=== PATIENT | male | born 1960 | race Caucasian/White ===

== ENCOUNTER 2016-12-13 19:59 | Emergency (ER) | payer MEDICARE, OTHER ==
[~2016-12-13] VITALS: Ht 162.6 cm; Wt 86.0 kg
[~2016-12-13 19:59] MED LIST: ASPIRIN; SERT50TA6 PO; klonopin
[2016-12-13 20:10] VITALS: Ht 162.6 cm; Wt 86.0 kg
[2016-12-13] MEDS ORDERED: LIDOCAINE 2% (MDV) 20 ML INJ INJ ONE (22:00)
[2016-12-13] MEDS ORDERED: DIPHTH/TET/ACEL PERTUSS (ADULT) 0.5 ML VIAL IM* ONE (23:00)
[2016-12-13 23:40] VITALS: BP 115/87; PULSE 72; RESP 18; TEMP 98.6
--- NOTE | 2016-12-14 00:30 | ERD ---
ER Documentation Chief Complaint Date/Time DATE: 12/14/16 TIME: 00:27 Chief Complaint chin laceration HPI 56-year-old male patient with a past medical history of depression presents the ED complaining of a chin laceration that occurred earlier today. 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 States that he is up-to-date with his vaccinations. Denies any posterior head pain. Denies any fever, chills, headache, nausea, vomiting, weakness, numbness and tingling. ROS All systems reviewed and are negative except as per history of present illness. Medications Home Meds Reported Medications [Aspirin] No Conflict Check 05/25/16 [klonopin] No Conflict Check 05/25/16 Sertraline Hcl* (Sertraline Hcl*) 50 Mg Tablet, 50 MG PO DAILY, #30 TAB 09/18/15 Allergies Allergies: Coded Allergies: Shellfish (Verified Allergy, Unknown, 07/23/15) acetaminophen (Verified Allergy, Unknown, 10/10/15) atropine (Verified Allergy, Unknown, 10/10/15) ciprofloxacin (Verified Allergy, Unknown, 10/10/15) codeine (Verified Allergy, Unknown, 07/23/15) docusate (Verified Allergy, Unknown, 10/10/15) hydrocodone (Verified Allergy, Unknown, 10/10/15) morphine (Verified Allergy, Unknown, 10/10/15) ranitidine (Verified Allergy, Unknown, 10/10/15) rofecoxib (Verified Allergy, Unknown, 07/23/15) PMhx/Soc History of Surgery: Yes (CHOLECYSTECTOMY) Anesthesia Reaction: No Hx Neurological Disorder: Yes (FIBROMYALGIA) Hx Respiratory Disorders: No Hx Cardiac Disorders: Yes Hx Psychiatric Problems: Yes (ANXIETY/DEPRESSION) Hx Miscellaneous Medical Probl: No Hx Alcohol Use: No Hx Substance Use: No Hx Tobacco Use: No Smoking Status: Never smoker Physical Exam Vitals Vital Signs Date Time Temp Pulse Resp B/P Pulse Ox O2 Delivery O2 Flow Rate FiO2 12/13/16 23:40 98.6 72 18 115/87 96 Room Air 12/13/16 20:10 98.3 80 20 170/78 99 Physical Exam Const: Anu-rxb-jrblyaznr, well-nourished. In no acute distress. Head: Atraumatic, normocephalic Eyes: Normal Conjunctiva without injection. No purulent discharge. PERRLA. EOMI ENT: Normal external ear. Ear canal without erythema. Tympanic membrane pearly hinojosa without effusion or bulging. Nasal canal clear with normal turbinates. Moist oropharynx without tonsillar exudates. Non-erythematous pharynx. Uvula midline. No drooling. No trismus. Neck: No cervical midline tenderness. Full range of motion. No meningismus. No cervical lymphadenopathy. No JVD. Resp: Clear to auscultation bilaterally. No wheezing, rhonchi, rales, or crackles. No accessory muscle use. No retractions. Cardio: Regular rate and rhythm. No murmurs, rubs or gallops. Abd: Soft, non tender, non distended. Normal bowel sounds. No palpable masses. No rebound tenderness. No guarding. Negative McBurney's Point. Negative Loyd's Sign. Skin: Normal skin turgor. No petechiae or rashes. 1.5 cm linear horizontal laceration noted on the left side of patient's chin with no surrounding erythema , edema, purulent discharge. No fluctuance or induration. Back: No midline tenderness. No CVA tenderness. Ext: No cyanosis, or edema. Distal pulses intact bilaterally. Neur: Awake and alert. Normal gait. Normal coordination. Cranial Nerves II- VII intact. Normal finger to nose. Muscle strength 5/5. Sensation intact. Psych: Normal Mood and Affect Results 24 hrs Current Medications Medications (Trade) Dose Ordered Sig/Stephanie Route PRN Reason Start Time Stop Time Status Last Admin Dose Admin Lidocaine (Xylocaine 2% (Mdv) 20 ml) 20 ml ONCE ONCE INJ 12/13/16 22:00 12/13/16 22:01 DC Diphtheria/ Tetanus/Acell Pertussis (Adacel) 0.5 ml ONCE ONCE IM* 12/13/16 23:00 12/13/16 23:01 DC 12/13/16 22:58 Procedures/MDM This is a 56-year-old male patient with a past medical history of depression presents to the ED complaining of a chin laceration that occurred earlier today. Patient is afebrile and nontoxic-appearing. Patient has normal vital signs. Patient gave consent to perform laceration repair. Laceration Repair by me: Anesthesia: 5 cc 2% lidocaine locally Location: [Chin] Tendon/Joint/Nerves: No injury Foreign body: None detected after copious irrigation and exploration Technique: 3 6-0 Ethilon Simple Interrupted Sutures Complexity: No subcutaneous sutures/mucosal repair/ edge excision Post Closure Length: [1.5] cm Patient's bleeding was easily controlled in the department and there is no indication of anemia. Patient is neurovascularly intact. No evidence of compartment syndrome, neurologic injury, vascular injury, open joint, tendon laceration, or foreign body. Patient is appropriate for outpatient follow up. 48 hour wound check. Scar minimization instructions given. Instructed patient to return for suture removal in 5-7 days. Instructed patient to return to the ED sooner for any worsening symptoms. Follow up with primary care physician in 1-2 days. Patient's questions were answered. Patient understood and agreed with discharge plan. Departure Diagnosis: Primary Impression: Chin laceration Encounter type: initial encounter Qualified Code: S01.81XA - Chin laceration , initial encounter Condition: Stable Patient Instructions: Laceration, Chin, Suture Or Tape Referrals: [facility] YOU HAVE RECEIVED A MEDICAL SCREENING EXAM AND THE RESULTS INDICATE THAT YOU DO NOT HAVE A CONDITION THAT REQUIRES URGENT TREATMENT IN THE EMERGENCY DEPARTMENT. FURTHER EVALUATION AND TREATMENT OF YOUR CONDITION CAN WAIT UNTIL YOU ARE SEEN IN YOUR DOCTORS OFFICE WITHIN THE NEXT 1-2 DAYS. IT IS YOUR RESPONSIBILITY TO MAKE AN APPOINTMENT FOR FOL-UP CARE. IF YOU HAVE A PRIMARY DOCTOR --you should call your primary doctor and schedule an appointment IF YOU DO NOT HAVE A PRIMARY DOCTOR YOU CAN CALL OUR PHYSICIAN REFERRAL HOTLINE AT IF YOU CAN NOT AFFORD TO SEE A PHYSICIAN YOU CAN CHOSE FROM THE FOLLOWING [facility] CLINICS [facility] [address] [facility]. [facility] [address] [facility]. [facility] [address] [facility]. [facility] [address] [facility] [address] [facility]. [facility]. [address] [facility]. [facility] YOU HAVE RECEIVED A MEDICAL SCREENING EXAM AND THE RESULTS INDICATE THAT YOU DO NOT HAVE A CONDITION THAT REQUIRES URGENT TREATMENT IN THE EMERGENCY DEPARTMENT. FURTHER EVALUATION AND TREATMENT OF YOUR CONDITION CAN WAIT UNTIL YOU ARE SEEN IN YOUR DOCTORS OFFICE WITHIN THE NEXT 1-2 DAYS. IT IS YOUR RESPONSIBILITY TO MAKE AN APPOINTMENT FOR FOLOW-UP CARE. IF YOU HAVE A PRIMARY DOCTOR --you should call your primary doctor and schedule and appointment IF YOU DO NOT HAVE A PRIMARY DOCTOR YOU CAN CALL OUR PHYSICIAN REFERRAL HOTLINE AT . IF YOU CAN NOT AFFORD TO SEE A PHYSICIAN YOU CAN CHOSE FROM THE FOLLOWING [facility] INSTITUTIONS: [facility] [address] [place] [address] [facility] [address] [place] [address] [facility] [address] [place] [address] [facility]ENT [facility]SPECIALTIES Additional Instructions: Follow up in 2 days in your clinic for wound check. Follow up with your physician to remove the stitches:For Face wounds 5-7 days.For Elsewhere on the body 7-10 days. Return to this facility if you are not improving as expected. CHELO WITT PA-C December 14, 2016 00:30 CHELO WITT PA-C December 14, 2016 00:30
== END 2016-12-13 23:41 | disposition home or self-care (01) ==
LOC: FTE 19:59
DX: S01.81XA Laceration without foreign body of other part of head, initial encounter (principal); W22.8XXA Striking against or struck by other objects, initial encounter; Y92.9 Unspecified place or not applicable; Z23 Encounter for immunization
CPT/HCPCS: 90471; 90715

== ENCOUNTER 2017-08-22 12:16 | Emergency (ER) | END 2017-08-22 18:19 | disposition home or self-care (01) ==

== ENCOUNTER 2018-04-04 06:49 | Observation (INO) | END 2018-04-05 15:47 | disposition home or self-care (01) ==

== ENCOUNTER 2018-07-01 18:58 | Emergency (ER) | END 2018-07-01 21:14 | disposition home or self-care (01) ==

== ENCOUNTER 2018-10-10 19:36 | Emergency (ER) | payer MEDICARE, OTHER ==
[~2018-10-10] VITALS: Ht 167.6 cm; Wt 74.0 kg
[~2018-10-10 19:36] MED LIST changes: +ASPI-535 PO; -ASPIRIN; +CALC-143 PO; +NIAC500C8 PO; +OMEG1CAP90 PO; +ONDA4TAB14 PO; -SERT50TA6 PO; +VITA400C15 PO; +ZINC220C5 PO; -klonopin
[2018-10-10 20:07] VITALS: Ht 167.6 cm; Wt 74.0 kg
[2018-10-11] MEDS ORDERED: MECL12.574 PO (03:05)
[2018-10-11 04:19] VITALS: BP 146/72; PULSE 60; RESP 18
--- NOTE | 2018-10-12 12:47 | ERD ---
ER Documentation Chief Complaint Chief Complaint DIZZINESS WITH OVERALL WEAKNESS X TODAY HPI 57-year-old male presents with history of some dizziness today. In addition he states he felt a little bit weak as well. He says that last Monday he got this shingles shot and a day after he spiked a mild fever and had some itchiness. St ates that he currently has no fever, dizziness, or itchiness or weakness. Not taking any treatments. Denies any wheezing, shortness of breath. Denies any chest pain, hemoptysis, history of travel or immobility, dyspnea. Denies any headaches, nausea, vomiting, fevers. Denies any current weakness or numbness or tingling. states that he has a history of fibromyalgia. ROS All systems reviewed and are negative except as per history of present illness. Medications Home Meds Active Scripts Meclizine Hcl* (Antivert*) 12.5 Mg Tab, 12.5 MG PO Q6H PRN for DIZZINESS, #20 TAB Prov:COLT SHEFFIELD 10/11/18 Ondansetron (Ondansetron Odt) 4 Mg Tab.rapdis, 4 MG PO Q6H PRN for NAUSEA AND/OR VOMITING, #10 TAB Prov:DANY PACHECO MD 07/01/18 Reported Medications Hawthorne-3 Fatty Acids/Fish Oil ([place]orne 3 1,000 mg Softgel) 1 Each Capsule, 1 EACH PO, CAP 04/04/18 Vitamin E* (Vitamin E*) 400 Unit Capsule, 400 UNIT PO DAILY, CAP 04/04/18 Zinc Sulfate* (Zinc Sulfate*) 220 Mg Cap, 220 MG PO DAILY, CAP 04/04/18 Calcium Citrate/Vitamin D (Citracal-Vitamin D 200 MG-250) 1 Each Tablet, 1 EACH PO BID, TAB 04/04/18 Niacin (Inositol Niacinate) (Niacin 500 mg Capsule) 500 Mg Capsule, 500 MG PO DAILY, CAP 04/04/18 Aspirin Ec (Aspir 81) 81 Mg Tablet.dr, 81 MG PO DAILY, #30 TAB 04/04/18 Allergies Allergies: Coded Allergies: Shellfish (Unverified Allergy, Unknown, 04/04/18) acetaminophen (Unverified Allergy, Unknown, 04/04/18) atropine (Unverified Allergy, Unknown, 04/04/18) ciprofloxacin (Unverified Allergy, Unknown, 04/04/18) codeine (Unverified Allergy, Unknown, 04/04/18) docusate (Unverified Allergy, Unknown, 04/04/18) hydrocodone (Unverified Allergy, Unknown, 04/04/18) morphine (Unverified Allergy, Unknown, 04/04/18) ranitidine (Unverified Allergy, Unknown, 04/04/18) rofecoxib (Unverified Allergy, Unknown, 04/04/18) PMhx/Soc Medical and Surgical Hx: pt denies Surgical Hx History of Surgery: No Anesthesia Reaction: No Hx Neurological Disorder: No Hx Respiratory Disorders: Yes (COPD) Hx Cardiac Disorders: No Hx Psychiatric Problems: No Hx Miscellaneous Medical Probl: No Hx Alcohol Use: No Hx Substance Use: No Hx Tobacco Use: No Smoking Status: Never smoker FmHx Family History: No diabetes, No coronary disease, No other Physical Exam Vitals Vital Signs Date Temp Pulse Resp B/P (MAP) Pulse Ox O2 O2 Flow FiO2 Time Delivery Rate 10/11/18 98.3 60 18 146/72 97 Room Air 04:19 (96) 10/10/18 98.7 79 18 143/70 98 20:07 (94) Physical Exam Const: No acute distress Head: Atraumatic Eyes: Normal Conjunctiva PERRLA.. No vertical nystagmus. ENT: Normal External Ears, Nose and Mouth. TMs are pearly hinojosa and nonbulging with no hematotympanum. Airway is patent with no angioedema Neck: Full range of motion. No meningismus. Resp: Clear to auscultation bilaterally Cardio: Regular rate and rhythm, no murmurs Abd: Soft, non tender, non distended. Normal bowel sounds Skin: No petechiae or rashes Back: No midline or flank tenderness Ext: No cyanosis, or edema Neur: Awake and alert. excellence manager 1 through 12 intact. Psych: Normal Mood and Affect neuro: M/S: Alert and oriented Face: EOMI, face and pharynx with normal sensation and function Motor: Normal strength throughout Sensation: Normal sensation throughout Speech: Normal Cerebel: Normal coordination Normal gait Normal finger to nose DTR: 2+ and symmetric upper/lower extremities Result Diagram: 10/11/1810810/11/18108 Results 24 hrs Laboratory Tests Test 10/11/18 01:09 White Blood Count 5.6 10^3/ul Red Blood Count 4.78 10^6/ul Hemoglobin 14.9 g/dl Hematocrit 43.4 % Mean Corpuscular Volume 90.8 fl Mean Corpuscular Hemoglobin 31.2 pg Mean Corpuscular Hemoglobin Concent 34.3 g/dl Red Cell Distribution Width 12.3 % Platelet Count 211 10^3/UL Mean Platelet Volume 10.3 fl Immature Granulocytes % 0.200 % Neutrophils % 44.7 % Lymphocytes % 39.9 % Monocytes % 11.2 % Eosinophils % 3.6 % Basophils % 0.4 % Nucleated Red Blood Cells % 0.0 /100WBC Immature Granulocytes # 0.010 10^3/ul Neutrophils # 2.5 10^3/ul Lymphocytes # 2.2 10^3/ul Monocytes # 0.6 10^3/ul Eosinophils # 0.2 10^3/ul Basophils # 0.0 10^3/ul Nucleated Red Blood Cells # 0.0 10^3/ul Sodium Level 139 mmol/L Potassium Level 4.0 mmol/L Chloride Level 100 mmol/L Carbon Dioxide Level 29 mmol/L Anion Gap 10 Blood Urea Nitrogen 13 mg/dl Creatinine 1.21 mg/dl Est Glomerular Filtrat Rate mL/min > 60 mL/min Glucose Level 104 mg/dl Calcium Level 9.7 mg/dl Magnesium Level 2.3 mg/dl Total Bilirubin 1.2 mg/dl Direct Bilirubin 0.00 mg/dl Indirect Bilirubin 1.2 mg/dl Aspartate Amino Transf (AST/SGOT) 31 IU/L Alanine Aminotransferase (ALT/SGPT) 19 IU/L Alkaline Phosphatase 106 IU/L Total Protein 8.0 g/dl Albumin 4.5 g/dl Globulin 3.50 g/dl Albumin/Globulin Ratio 1.28 Thyroid Stimulating Hormone (TSH) 3.680 MIU/L [facility] EKG: Rate/Rhythm: Sinus rhythm with frequent PVCs QRS, ST, T-waves: No changes consistent w/ acute ischemia Impression: No evidence of ischemia or arrhythmia 57-year-old male presents with history of some dizziness today. In addition he states he felt a little bit weak as well. He says that last Monday he got this shingles shot and a day after he spiked a mild fever and had some itchiness. States that he currently has no fever, dizziness, or itchiness or weakness. Not taking any treatments. Denies any wheezing, shortness of breath. Denies any chest pain, hemoptysis, history of travel or immobility, dyspnea. CBC, CMP, and TSH were performed. All within normal limits. In addition, patient's neuro exam was within normal limits. ER Course: CBC, CMP, Troponin, EKG, orthostatic vitals administered. All WNL. EKG was performed to rule out arrhythmia s and it did show that there were some PVCs. I discussed the case with Dr. Mcgee my supervising physician and he said that as long as the magnesium was normal patient could be safely discharged. Magnesium was ordered and it was within normal limits. I have low suspicion for CVA, intercranial mass, elevated intercranial pressure, due to patient history and normal neuro exam and normal hints exam. I have low suspicion for meningitis, cardiac pathology, hemorr jw, dehydration, hypovolemia, hypoglycemia, or electrolyte imbalance based on labs, exam, and patient history. I have low suspicion for orthostatic hypotension based on normal orthostatic vitals. No evidence of meningitis. Patient's neurologic symptoms have been evaluated in the department and have stabilized. At discharge, patient given Rx for meclizine in case symptoms return. Regarding patient's PVCs, patient was advised to follow-up with his primary care for possible cardiology follow-up and monitoring. Patient is appropriate for outpatient management. Patient discharged with strict ER precautions. Patient advised to follow up with PMD. All questions answered at discharge. Departure Diagnosis: Primary Impression: Dizziness Additional Impression: Premature complex, ventricular Condition: Stable Patient Instructions: Premature Ventricular Contractions, Possible Causes of Dizziness or Fainting, Dizziness (Vertigo) and Balance Problems: Ensuring Your Safety, Dizziness, Unk Cause Referrals: MIR SQUIRES MD (PCP) ANGELA MCCONNELL,CARTER KOEHLER MD Additional Instructions: Follow up with forester aide regarding premature ventricular complexes on ekg. FOLLOW UP WITH YOUR PRIMARY CARE PHYSICIAN TOMORROW.Return to this facility if you are not improving as expected. COLT SHEFFIELD Oct 12, 2018 12:47
== END 2018-10-11 04:20 | disposition home or self-care (01) ==
LOC: FTE 19:36
DX: I49.3 Ventricular premature depolarization (principal); J44.9 Chronic obstructive pulmonary disease, unspecified; Z79.82 Long term (current) use of aspirin
CPT/HCPCS: 36415; 80053; 83735; 84443; 85025

== ENCOUNTER 2018-12-25 02:04 | Emergency (ER) | payer MEDICARE ==
[~2018-12-25] VITALS: Ht 167.6 cm; Wt 86.6 kg
[~2018-12-25 02:04] MED LIST changes: +MECL12.574 PO
[2018-12-25 02:12] VITALS: Ht 167.6 cm; Wt 86.6 kg
--- NOTE | 2018-12-25 04:43 | ERD ---
ER Documentation Chief Complaint Chief Complaint mistakenly brushed teeth with hydrocortisone1%cream 1 hour ago, no ingestio HPI 58-year-old male, previously healthy, presents to the emergency department for a physical examination after accidentally brushing his teeth with hydrocortisone cream 1%; approximately 1 hour prior to arrival. The patient denies ingestion, no lip swelling, no sore throat. ROS All systems reviewed and are negative except as per history of present illness. Medications Home Meds Active Scripts Meclizine Hcl* (Antivert*) 12.5 Mg Tab, 12.5 MG PO Q6H PRN for DIZZINESS, #20 TAB Prov:COLT SHEFFIELD 10/11/18 Ondansetron (Ondansetron Odt) 4 Mg Tab.rapdis, 4 MG PO Q6H PRN for NAUSEA AND/OR VOMITING, #10 TAB Prov:DANY PACHECO MD 07/01/18 Reported Medications Knox-3 Fatty Acids/Fish Oil (Knox 3 1,000 mg Softgel) 1 Each Capsule, 1 EACH PO, CAP 04/04/18 Vitamin E* (Vitamin E*) 400 Unit Capsule, 400 UNIT PO DAILY, CAP 04/04/18 Zinc Sulfate* (Zinc Sulfate*) 220 Mg Cap, 220 MG PO DAILY, CAP 04/04/18 Calcium Citrate/Vitamin D (Citracal-Vitamin D 200 MG-250) 1 Each Tablet, 1 EACH PO BID, TAB 04/04/18 Niacin (Inositol Niacinate) (Niacin 500 mg Capsule) 500 Mg Capsule, 500 MG PO DAILY, CAP 04/04/18 Aspirin Ec (Aspir 81) 81 Mg Tablet.dr, 81 MG PO DAILY, #30 TAB 04/04/18 Allergies Allergies: Coded Allergies: Shellfish (Unverified Allergy, Unknown, 04/04/18) acetaminophen (Unverified Allergy, Unknown, 04/04/18) atropine (Unverified Allergy, Unknown, 04/04/18) ciprofloxacin (Unverified Allergy, Unknown, 04/04/18) codeine (Unverified Allergy, Unknown, 04/04/18) docusate (Unverified Allergy, Unknown, 04/04/18) hydrocodone (Unverified Allergy, Unknown, 04/04/18) morphine (Unverified Allergy, Unknown, 04/04/18) ranitidine (Unverified Allergy, Unknown, 04/04/18) rofecoxib (Unverified Allergy, Unknown, 04/04/18) PMhx/Soc History of Surgery: No Anesthesia Reaction: No Hx Neurological Disorder: No Hx Respiratory Disorders: Yes (COPD) Hx Cardiac Disorders: No Hx Psychiatric Problems: No Hx Miscellaneous Medical Probl: No Hx Alcohol Use: No Hx Substance Use: No Hx Tobacco Use: No Smoking Status: Never smoker FmHx Family History: No diabetes, No coronary disease Physical Exam Vitals Vital Signs Date Temp Pulse Resp B/P (MAP) Pulse Ox O2 O2 Flow FiO2 Time Delivery Rate 12/25/18 98.1 69 18 170/77 96 02:12 (108) Physical Exam Patient alert, oriented, vital signs stable. HEAD: Normocephalic, atraumatic. EYES: PERRLA, EOMI, Sclera and conjunctiva appear normal. NOSE: Clear and patent nostrils. EARS: Canals clear, tympanic membranes WNL. MOUTH: normal lips and tongue, no oral lesions. THROAT: Normal oropharynx, no tonsillar exudates. NECK: Supple, No lymphadenopathy. Full ROM without pain or tenderness. HEART: RRR, no rubs, murmurs, clicks or gallops. LUNGS: Clear to auscultation. ABDOMEN: Soft, non-tender without masses or hepatosplenomegaly. EXTREMITIES: No edema bilaterally. BACK: Full ROM, no deformity, normal back exam NEURO: Cranial nerves grossly intact, no motor or sensory deficit SKIN: No rashes, no petechia. Procedures/MDM Vital signs stable, physical examination unremarkable. Low suspicion for accidental overdose, allergic reaction or upper airway obstruction. During the ED course the patient remained stable, no new complaints. Results and clinical impression discussed with the patient who agrees with management. The patient is stable to be treated outpatient and will be discharged home with recommendations to Follow up with the primary care provider in the next 48h. If symptoms persist, worsen or new symptoms develop, then patient should return to the ED immediately. Instructions explained and given directly by me to the patient with acknowledgment and demonstrated understanding. Disclaimer: Inadvertent spelling and grammatical errors are likely due to EHR/dictation software use and do not reflect on the overall quality of patient care. Also, please note that the electronic time recorded on this note does not necessarily reflect the actual time of the patient encounter. Departure Diagnosis: Primary Impression: Normal exam Additional Impression: Worried well Condition: Stable Additional Instructions: Thank you very much for allowing us to participate in your care. Your health and safety is our top priority at [facility]. The evaluation in the emergency department has been done to rule out an acute emergency, therefore, chronic conditions like malignancy or other diseases have not been evaluated; therefore, you need to follow up with a primary care provider in the next 48h. If symptoms persist, worsen or new symptoms develop, then patient should return to the ED immediately. Call your primary care doctor TOMORROW for an appointment during the next 2-4 days and bring all the information provided. Have prescriptions filled and follow precisely the directions on the label. If the symptoms get worse and your provider is unavailable, return to the Emergency Department immediately. KENNY STEVENS MD December 25, 2018 04:43
== END 2018-12-25 05:02 | disposition home or self-care (01) ==
LOC: FTE 02:04
DX: Z00.00 Encounter for general adult medical examination without abnormal findings (principal); J44.9 Chronic obstructive pulmonary disease, unspecified; Z71.1 Person with feared health complaint in whom no diagnosis is made; Z79.82 Long term (current) use of aspirin
CPT/HCPCS: 99282

== ENCOUNTER 2019-01-26 21:18 | Emergency (ER) | payer MEDICARE, OTHER ==
[~2019-01-26] VITALS: Ht 167.6 cm; Wt 87.4 kg
[2019-01-26 21:27] VITALS: Ht 167.6 cm; Wt 87.4 kg
[2019-01-26] MEDS ORDERED: SOD CHLORIDE 0.9% 1,000 ML IV STA (22:05)
[2019-01-26] MEDS ORDERED: DICYCLOMINE 10 MG CAP PO ONE (22:30)
--- NOTE | 2019-01-27 02:04 | ERD ---
ER Documentation Chief Complaint Chief Complaint C/O RT SIDE CRAMPING, WEAKNESS AND DIZZY X2 HRS HPI This is a very pleasant 58-year-old gentleman who presents to the emergency room complaining of right-sided abdominal cramping. He states that earlier today he noted some looser stool. He notes cramping to the right upper abdomen and epigastric region that is associated with mild nausea. Mild lightheadedness. He denies any chest pressure or exertional symptoms though he was walking outside today in the heat. He denies any pleuritic pain. He states negative stress testing within the past 9 months. He denies any pleuritic pain. No recent travel sick contacts or antibiotics. ROS All systems reviewed and are negative except as per history of present illness. Medications Home Meds Active Scripts Meclizine Hcl* (Antivert*) 12.5 Mg Tab, 12.5 MG PO Q6H PRN for DIZZINESS, #20 TAB Prov:COLT SHEFFIELD 10/11/18 Ondansetron (Ondansetron Odt) 4 Mg Tab.rapdis, 4 MG PO Q6H PRN for NAUSEA AND/OR VOMITING, #10 TAB Prov:DANY PACHECO MD 07/01/18 Reported Medications [place]-3 Fatty Acids/Fish Oil ([place] 3 1,000 mg Softgel) 1 Each Capsule, 1 EACH PO, CAP 04/04/18 Vitamin E* (Vitamin E*) 400 Unit Capsule, 400 UNIT PO DAILY, CAP 04/04/18 Zinc Sulfate* (Zinc Sulfate*) 220 Mg Cap, 220 MG PO DAILY, CAP 04/04/18 Calcium Citrate/Vitamin D (Citracal-Vitamin D 200 MG-250) 1 Each Tablet, 1 EACH PO BID, TAB 04/04/18 Niacin (Inositol Niacinate) (Niacin 500 mg Capsule) 500 Mg Capsule, 500 MG PO DAILY, CAP 04/04/18 Aspirin Ec (Aspir 81) 81 Mg Tablet.dr, 81 MG PO DAILY, #30 TAB 04/04/18 Allergies Allergies: Coded Allergies: Shellfish (Unverified Allergy, Unknown, 04/04/18) acetaminophen (Unverified Allergy, Unknown, 04/04/18) atropine (Unverified Allergy, Unknown, 04/04/18) ciprofloxacin (Unverified Allergy, Unknown, 04/04/18) codeine (Unverified Allergy, Unknown, 04/04/18) docusate (Unverified Allergy, Unknown, 04/04/18) hydrocodone (Unverified Allergy, Unknown, 04/04/18) morphine (Unverified Allergy, Unknown, 04/04/18) ranitidine (Unverified Allergy, Unknown, 04/04/18) rofecoxib (Unverified Allergy, Unknown, 04/04/18) PMhx/Soc Medical and Surgical Hx: pt denies Surgical Hx History of Surgery: No Anesthesia Reaction: No Hx Neurological Disorder: No Hx Respiratory Disorders: Yes (COPD) Hx Cardiac Disorders: No Hx Psychiatric Problems: No Hx Miscellaneous Medical Probl: No Hx Alcohol Use: No Hx Substance Use: No Hx Tobacco Use: No Smoking Status: Never smoker FmHx Family History: No diabetes Physical Exam Vitals Vital Signs Date Temp Pulse Resp B/P (MAP) Pulse Ox O2 O2 Flow FiO2 Time Delivery Rate 01/27/19 98.6 62 16 132/68 100 Room Air 03:37 (89) 01/26/19 66 16 146/72 100 Room Air 23:45 (96) 01/26/19 97.2 82 21 179/84 100 21:27 (115) Physical Exam General: Well developed, well nourished, no acute distress Head: Normocephalic, atraumatic. Eyes: Pupils equally reactive, EOM intact ENT: Moist mucous membranes Neck: Supple, no lymphadenopathy Respiratory: Lungs clear bilaterally, no distress Cardiovascular: RRR, no murmurs, rubs, or gallops Abdominal: Soft, non-tender, non-distended, no peritoneal signs : Deferred MSK: No edema, no unilateral swelling, 5/5 strength Neurologic: Alert and oriented, moving all extremities, normal speech, no focal weakness, no cerebellar signs Skin: No rash Psych: Normal mood Result Diagram: 01/26/19221101/26/19 221 Results 24 hrs Laboratory Tests Test 01/26/19 22:12 01/27/19 02:15 White Blood Count 8.4 10^3/ul Red Blood Count 4.67 10^6/ul Hemoglobin 14.4 g/dl Hematocrit 41.6 % Mean Corpuscular Volume 89.1 fl Mean Corpuscular Hemoglobin 30.8 pg Mean Corpuscular Hemoglobin Concent 34.6 g/dl Red Cell Distribution Width 12.7 % Platelet Count 217 10^3/UL Mean Platelet Volume 10.2 fl Immature Granulocytes % 0.200 % Neutrophils % 54.9 % Lymphocytes % 36.0 % Monocytes % 7.0 % Eosinophils % 1.7 % Basophils % 0.2 % Nucleated Red Blood Cells % 0.0 /100WBC Immature Granulocytes # 0.020 10^3/ul Neutrophils # 4.6 10^3/ul Lymphocytes # 3.0 10^3/ul Monocytes # 0.6 10^3/ul Eosinophils # 0.1 10^3/ul Basophils # 0.0 10^3/ul Nucleated Red Blood Cells # 0.0 10^3/ul Sodium Level 134 mmol/L Potassium Level 3.3 mmol/L Chloride Level 99 mmol/L Carbon Dioxide Level 24 mmol/L Anion Gap 11 Blood Urea Nitrogen 18 mg/dl Creatinine 1.22 mg/dl Est Glomerular Filtrat Rate mL/min > 60 mL/min Glucose Level 101 mg/dl Calcium Level 8.7 mg/dl Total Bilirubin 1.3 mg/dl Direct Bilirubin 0.00 mg/dl Indirect Bilirubin 1.3 mg/dl Aspartate Amino Transf (AST/SGOT) 41 IU/L Alanine Aminotransferase (ALT/SGPT) 30 IU/L Alkaline Phosphatase 93 IU/L Troponin I < 0.012 ng/ml < 0.012 ng/ml Total Protein 7.8 g/dl Albumin 4.4 g/dl Globulin 3.40 g/dl Albumin/Globulin Ratio 1.29 Lipase 469 U/L Current Medications Medications Dose Sig/Stephanie Start Time Status Last (Trade) Ordered Route PRN Stop Time Admin Dose Reason Admin Sodium 1,000 ml @ Q1H STAT 01/26/19 DC 01/26/19 Chloride 1,000 mls/hr IV 22:05 22:29 01/26/19 23:04 Dicyclomine 10 mg ONCE ONCE 01/26/19 DC 01/26/19 HCl PO 22:30 22:29 (Bentyl) 01/26/19 22:31 Procedures/MDM EKG, MONITORS, & DIAGNOSTIC IMAGING: EKG: I reviewed and interpreted a 12-lead EKG. Rhythm: Normal sinus rhythm ST Changes: No contiguous ST segment elevations T waves: No contiguous T wave inversions Impression: No evidence of acute cardiac ischemia Repeat EKG: EKG: I reviewed and interpreted a 12-lead EKG. Rhythm: Normal sinus rhythm ST Changes: No contiguous ST segment elevations T waves: No contiguous T wave inversions Impression: No evidence of acute cardiac ischemia Chest x-ray: I reviewed and interpreted a 1 view of the chest Mediastinum: No enlargement Cardiac silhouette: No cardiomegaly Airspace: Clear lung nielsen bilaterally without evidence of pneumothorax Bones: No evidence of fracture PROCEDURES: None LAB INTERPRETATION: * Negative troponin x2 MEDICAL DECISION MAKING: The patient's history, physical exam and clinical presentation is unlikely consistent with acute coronary syndrome. Possibly secondary to viral process versus nonspecific stressors as the patient has significant home social stressors. Very low pretest probability for cardiac etiology. We discussed and offered inpatient hospitalization versus serial enzymes in the emergency room setting. He prefers serial enzymes at discharge. Based on the patient's clinical exam and history and risk factors, I have a much lower clinical concern for pulmonary embolism, acute aortic dissection, pneumothorax, pneumonia, cardiac tamponade HEART Score: 2 MACE Rate: 1.7% Shared Decision Making: We had a conversation regarding risk stratification, MACE rate, and the risks, benefits, alternatives of disposition planning options. Disposition planning: Patient would like serial enzymes and discharge ER COURSE: * Patient continues to be resting comfortably. Troponin is negative x2. * Patient can be safely discharged with close primary care follow-up. CONSULTATION: None DISPOSITION PLAN: The patient does not have an identifiable emergent medical condition that warrants inpatient hospitalization at this time. The patient is deemed safe for discharge with outpatient follow-up. We discussed follow up with the patient's primary care doctor within 24 to 48 hours as needed. We also discussed return to the emergency room for worsening symptoms or worsening condition. Outpatient referral: None required Discharge Medications: None required Departure Diagnosis: Primary Impression: Epigastric pain Additional Impression: Chest pain Chest pain type: unspecified Qualified Codes: R07.9 - Chest pain, unspecified Condition: Stable DRE BAXTER MD Jan 27, 2019 02:03
[2019-01-27 03:37] VITALS: BP 132/68; PULSE 62; RESP 16
== END 2019-01-27 03:38 | disposition home or self-care (01) ==
LOC: E/R 21:18
DX: R10.13 Epigastric pain (principal); J44.9 Chronic obstructive pulmonary disease, unspecified; R07.9 Chest pain, unspecified; Z79.82 Long term (current) use of aspirin
CPT/HCPCS: 36415; 71045; 80053; 83690; 84484; 85025; 93005; 99285; J7030

== ENCOUNTER 2019-05-10 03:10 | Emergency (ER) | payer MEDICARE, OTHER ==
[~2019-05-10] VITALS: Ht 168.9 cm; Wt 90.0 kg
[~2019-05-10 03:10] MED LIST changes: +NAPR-985 PO
[2019-05-10 03:12] VITALS: BP 148/74; PULSE 65; RESP 16; Ht 168.9 cm; Wt 90.0 kg
[2019-05-10] MEDS ORDERED: IBUPROFEN 600 MG TAB PO ONE (04:00)
== END 2019-05-10 05:22 | disposition home or self-care (01) ==
LOC: FTE 03:10
DX: S82.61XA Displaced fracture of lateral malleolus of right fibula, initial encounter for closed fracture (principal); J44.9 Chronic obstructive pulmonary disease, unspecified; X50.1XXA Overexertion from prolonged static or awkward postures, initial encounter; Y92.9 Unspecified place or not applicable; Z79.82 Long term (current) use of aspirin